=== PATIENT | female | born 1995 | race Caucasian/White ===

== ENCOUNTER 2022-03-13 15:18 | Emergency (ER) | payer OTHER ==
[~2022-03-13] VITALS: Ht 162.6 cm; Wt 53.2 kg
[2022-03-13 15:20] VITALS: BP 125/67
== END 2022-03-13 16:14 | disposition home or self-care (01) ==
LOC: EMS 15:19
DX: S06.0X0A Concussion without loss of consciousness, initial encounter (principal); K90.0 Celiac disease; Z87.898 Personal history of other specified conditions; W21.02XA Struck by soccer ball, initial encounter; Y93.89 Activity, other specified; Y92.89 Other specified places as the place of occurrence of the external cause; Y99.8 Other external cause status
CPT/HCPCS: 99281; Z7502